=== PATIENT | female | born 1975 | race Hispanic/Latino ===

== ENCOUNTER 2022-08-11 07:47 | Day surgery (SDC) | payer OTHER ==
[~2022-08-11] VITALS: Ht 160 cm; Wt 74.8 kg
[2022-08-11] MEDS ORDERED: 0.9%NACL 1000ML 1,000 ML IV ONE (08:10)
[2022-08-11 08:30] LABS: INR 0.98 (0.85-1.15); PROTHROMBIN TIME 10.7 SEC (9.6-11.6)
[2022-08-11 08:31] LABS: PARTIAL THROMBOPLASTIN TIME 29.2 SEC (26.3-35.5)
[2022-08-11] MEDS ORDERED: FENTANYL CITRATE PF 50 MCG/1 ML 2ML VIAL ONE (09:58)
[2022-08-11 10:40] VITALS: BP 122/76
[2022-08-11 10:55] VITALS: BP 127/75
[2022-08-11 11:10] VITALS: BP 126/73
[2022-08-11 11:30] VITALS: BP 114/67
[2022-08-11 12:00] VITALS: BP 109/68
[2022-08-11 12:30] VITALS: BP 131/68
== END 2022-08-11 12:40 | disposition home or self-care (01) ==
LOC: DAH 07:47
PROVIDERS: ATTEND Internal Medicine
DX: R74.8 Abnormal levels of other serum enzymes (principal); K76.0 Fatty (change of) liver, not elsewhere classified; K74.69 Other cirrhosis of liver; K74.00 Hepatic fibrosis, unspecified; M06.4 Inflammatory polyarthropathy; R76.0 Raised antibody titer; M79.641 Pain in right hand; Z79.01 Long term (current) use of anticoagulants; Z98.51 Tubal ligation status; Z82.61 Family history of arthritis; Z72.89 Other problems related to lifestyle; Z79.899 Other long term (current) drug therapy
CPT/HCPCS: 47000; 85610; 85730; 82948 ×2; 36415; 76942; J3010; J7030; C2615; A4215; A4222; A4221; A4663; A4216; A4606; A4223 ×3